=== PATIENT | female | born 1995 | race Caucasian/White ===

== ENCOUNTER 2022-10-29 09:01 | Emergency (ER) | payer MEDICAID ==
[~2022-10-29] VITALS: Ht 167.6 cm; Wt 73.8 kg
[2022-10-29] MEDS ORDERED: LORazepam 1 MG tablet PO ONE (09:10)
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
[2022-10-29 10:41] LABS: BASOPHILS # (AUTO) 0.1 X10'3 (0-0.2); BASOPHILS % (AUTO) 0.6 % (0-1); EOSINOPHILS # (AUTO) 0.2 X10'3 (0-0.9); EOSINOPHILS % (AUTO) 1.8 % (0-6); HEMATOCRIT 43.7 % (35.0-45.0); HEMOGLOBIN 15.2 g/dl (12.0-16.0); LYMPHOCYTES # (AUTO) 1.7 X10'3 (1.1-4.8); LYMPHOCYTES % (AUTO) 13.8 % (21-51); MEAN CORPUSCULAR HEMOGLOBIN 30.8 PG (27.0-31.0); MEAN CORPUSCULAR HGB CONC 34.8 g/dL (33.0-36.5); MEAN CORPUSCULAR VOLUME 88.8 FL (78-98); MEAN PLATELET VOLUME 7.6 FL (7.4-10.4); MONOCYTES # (AUTO) 0.8 X10'3 (0-0.9); MONOCYTES % (AUTO) 6.2 % (2-12); NEUTROPHILS # (AUTO) 9.9 X10'3 (1.8-7.7); NEUTROPHILS % (AUTO) 77.6 % (42-75); PLATELET COUNT 308 X10'3 (140-440); RED BLOOD COUNT 4.92 X10'6 (4.20-5.60); RED CELL DISTRIBUTION WIDTH 12.8 % (11.5-14.5); WHITE BLOOD COUNT 12.7 X10'3 (4.5-11.0)
[2022-10-29 10:56] LABS: ALANINE AMINOTRANSFERASE 11 U/L (12-78); ALBUMIN 4.2 G/DL (3.4-5.0); ALBUMIN/GLOBULIN RATIO 1.1 (1.1-1.5); ALKALINE PHOSPHATASE 65 IU/L (46-116); ANION GAP 7 (8-16); ASPARTATE AMINO TRANSFERASE 12 U/L (10-37); BILIRUBIN,TOTAL 0.6 MG/DL (0.1-1.0); BLOOD UREA NITROGEN 6 MG/DL (7-18); BUN/CREATININE RATIO 7.9 (10.0-20.0); CALCIUM 8.9 MG/DL (8.5-10.1); CHLORIDE 105 MMOL/L (99-107); CREATININE 0.76 MG/DL (0.40-0.90); ETHANOL < 0.010 GM/DL (0.0-0.010); GLUCOSE 92 MG/DL (70-104); POTASSIUM 3.9 MMOL/L (3.5-5.1); SODIUM 139 MMOL/L (135-145); TOTAL CARBON DIOXIDE 26.6 MMOL/L (24-32); TOTAL PROTEIN 7.9 G/DL (6.4-8.2); eGFR > 90 ML/MIN
[2022-10-29 10:58] LABS: HCG SERUM QL POSITIVE
--- NOTE | 2022-10-29 11:15 | NUR ---
Spoke with Roman at [facility] per patient request, states they will have an advocate meet with patient upon arrival.
[2022-10-29] MEDS ORDERED: iohexol 350MG/ML 100ml bottle IV ONE (11:30)
[2022-10-29 11:55] LABS: CLARITY,URINE CLEAR (Clear); COLOR,URINE YELLOW (Yellow); GLUCOSE, URINE NEGATIVE (Neg); KETONES,URINE NEGATIVE (Neg); LEUKOCYTE ESTERASE ,URINE NEGATIVE (Neg); NITRITES, URINE NEGATIVE (Neg); OCCULT BLOOD,URINE NEGATIVE (Neg); PH,URINE 5.5 (4.8-8.0); PROTEIN,URINE NEGATIVE (Neg); UROBILINOGEN,URINE 0.2 E.U/dL (0.2-1.0)
[2022-10-29 11:58] LABS: UA COLLECTION TYPE VOIDED
[2022-10-29 12:13] LABS: BETA HCG,QUANTITATIVE 1414 mIU/ml
[2022-10-29 12:13] LABS: URINE AMPHETAMINE SCREEN NEGATIVE (Neg); URINE BARBITUATE SCREEN NEGATIVE (Neg); URINE BENZODIAZEPINES SCREEN NEGATIVE (Neg); URINE CANNABINOID SCREEN POSITIVE (Neg); URINE COCAINE SCREEN NEGATIVE (Neg); URINE METHADONE SCREEN NEGATIVE (Neg); URINE OPIATE SCREEN NEGATIVE (Neg); URINE PHENCYCLIDINE SCREEN NEGATIVE (Neg)
[2022-10-29] MEDS ORDERED: LORA-269 PO (12:34)
[2022-10-29] MEDS ORDERED: QUET25TA PO (12:34)
[2022-10-29 13:08] VITALS: BP 119/77
== END 2022-10-29 13:31 | disposition home or self-care (01) ==
LOC: ER 09:02
DX: S16.1XXA Strain of muscle, fascia and tendon at neck level, initial encounter (principal); F34.1 Dysthymic disorder; F32.A Depression, unspecified; X58.XXXA Exposure to other specified factors, initial encounter; Y93.89 Activity, other specified; Y92.89 Other specified places as the place of occurrence of the external cause; Y99.8 Other external cause status
CPT/HCPCS: 36415; 70498; 80053; 80305; 80320; 81003; 84702; 84703; 85025; 99285; J3490; Q9967

== ENCOUNTER 2022-10-30 07:44 | Emergency (ER) | payer MEDICAID, OTHER ==
[~2022-10-30] VITALS: Ht 175.3 cm; Wt 70.0 kg
[~2022-10-30 07:44] MED LIST: LORA-269 PO; QUET25TA PO
[2022-10-30 07:50] VITALS: BP 118/79
--- NOTE | 2022-10-30 09:28 | NUR ---
pt yelling at md she does not want a man to be her provider, pt informed currently only male providers on duty. patient came out yelling in the hallway about needing a doctor, this typewriter assembler addressed the patient asking her to step back in her room. Patient began yelling that she needed to see a psychiatrist, this typewriter assembler informed the patient thatI had heard her state she does not want a male provider and this typewriter assembler informed her that currently all providers including our psychiatric providers were all male. Patient then grabbed her belongings and stated "I just need to get out of here" and left them emergency department.
== END 2022-10-30 09:48 | disposition left against medical advice (07) ==
LOC: ER 07:44
DX: F31.9 Bipolar disorder, unspecified (principal); F12.10 Cannabis abuse, uncomplicated; Z79.899 Other long term (current) drug therapy
CPT/HCPCS: 99281